=== PATIENT | male | born 1980 | race American Indian/Alaskan Native ===

== ENCOUNTER 2019-02-11 09:50 | Emergency (ER) | payer SELFPAY ==
[2019-02-11 10:16] VITALS: BP 119/71
[2019-02-11] MEDS ORDERED: predniSONE 20 MG TAB PO ONE (11:48)
[2019-02-11] MEDS ORDERED: IBUPROFEN 600 MG TAB PO ONE (11:48)
--- NOTE | 2019-02-11 11:53 | Emergency Department Report ---
ED Extremity Problem HPI - General Chief complaint: Extremity Injury, Lower Stated complaint: RT FOOT PAIN Time Seen by Provider: 02/11/19 11:47 Source: patient Mode of arrival: Ambulatory Limitations: No Limitations - History of Present Illness Initial comments: 38-year-old -[place] male presents to the emergency room complaining of pain to the bottom of his right foot at his arch. Patient states that he didn't has had no falls or injuries. Patient does admit to working in black steal boots with not much padding. Patient reported been taken Tylenol which reports no relief of pain. MD Complaint: extremity pain Location: right, other (foot bottom) History of Same: No Severity scale (0 -10): 8 Quality: burning, stabbing, aching Consistency: constant Improves with: nothing Worsens with: walking, palpation Associated Symptoms: denies other symptoms - Related Data Previous Rx's Medication Instructions Recorded Last Taken Type Ibuprofen [Motrin 600 MG tab] 600 mg PO Q8H PRN #30 tablet 02/11/19 Unknown Rx predniSONE [Deltasone] 20 mg PO QDAY 7 Days #7 tablet 02/11/19 Unknown Rx Allergies Allergy/AdvReac Type Severity Reaction Status Date / Time No Known Allergies Allergy Unverified 02/11/19 09:52 ED Review of Systems ROS: Stated complaint: RT FOOT PAIN Other details as noted in HPI Comment: All other systems reviewed and negative ED Past Medical Hx - Past Medical History Previous Medical History?: No - Surgical History Past Surgical History?: No - Social History Smoking Status: Never Smoker Substance Use Type: Alcohol, Marijuana - Medications Home Medications: Home Medications Medication Instructions Recorded Confirmed Last Taken Type Ibuprofen [Motrin 600 MG tab] 600 mg PO Q8H PRN #30 tablet 02/11/19 Unknown Rx predniSONE [Deltasone] 20 mg PO QDAY 7 Days #7 tablet 02/11/19 Unknown Rx ED Physical Exam - General Limitations: No Limitations General appearance: alert, in no apparent distress - Head Head exam: Present: atraumatic, normocephalic - Eye Eye exam: Present: normal appearance - ENT ENT exam: Present: mucous membranes moist - Expanded Lower Extremity Exam Right Foot/Toe exam: Present: tenderness (plantar aspect of the arch mild swelling) Neuro vascular tendon exam: Present: no vascular compromise - Neurological Exam Neurological exam: Present: alert, oriented X3 ED Course Vital Signs 02/11/19 10:12 Temperature 97.3 F L Pulse Rate 70 Respiratory 18 Rate Blood Pressure 119/71 O2 Sat by Pulse 99 Oximetry ED Medical Decision Making - Medical Decision Making 38-year-old -[place] male presents to the emergency room complaining of pain to the bottom of his right foot at his arch. Patient states that he didn't has had no falls or injuries. Patient does admit to working in black steal boots with not much padding. Patient reported been taken Tylenol which reports no relief of pain. Ibuprofen and steroids to be given now. Discussed the patient is sounds like a plantar fasciitis. We'll place patient on some short-term steroids with naproxen and patient is to follow-up with a biological technical officer. Critical care attestation.: If time is entered above; I have spent that time in minutes in the direct care of this critically ill patient, excluding procedure time. ED Disposition Clinical Impression: Plantar fasciitis of right foot Disposition: DC-01 TO HOME OR SELFCARE Is pt being admited?: No Does the pt Need Aspirin: No Condition: Stable Instructions: Plantar Fasciitis (ED) Prescriptions: predniSONE [Deltasone] 20 mg PO QDAY 7 Days #7 tablet Ibuprofen [Motrin 600 MG tab] 600 mg PO Q8H PRN #30 tablet PRN Reason: Pain , Severe (7-10) Referrals: YAJAIRA MCKNIGHT DPM [Referring] - 3-5 Days
== END 2019-02-11 12:24 | disposition home or self-care (01) ==
LOC: ED 09:50
DX: M72.2 Plantar fascial fibromatosis (principal); F12.10 Cannabis abuse, uncomplicated; Z79.1 Long term (current) use of non-steroidal anti-inflammatories (NSAID); Z79.899 Other long term (current) drug therapy
CPT/HCPCS: 99282; J7512

== ENCOUNTER 2020-05-13 08:49 | Emergency (ER) | payer SELFPAY ==
[2020-05-13 09:06] VITALS: BP 144/77
[2020-05-13] MEDS ORDERED: PANTOPRAZOLE 40 MG INJ IV ONE (09:18)
[2020-05-13] MEDS ORDERED: ONDANSETRON 4 MG/2 ML INJ IV ONE (09:18)
[2020-05-13] MEDS ORDERED: SODIUM CHLORIDE 0.9% 1000 ML 1,000 ML IV ONE (09:18)
--- NOTE | 2020-05-13 09:21 | Emergency Department Report ---
ED Abdominal Pain HPI - General Chief Complaint: Abdominal Pain Stated Complaint: ABD PAIN Time Seen by Provider: 05/13/20 09:07 Source: patient, family Mode of arrival: Ambulatory Limitations: No Limitations - History of Present Illness Initial Comments: Patient is a 39-year-old male presents emergency room with complaints of generalized abdominal pain that began 2 days ago. He states he has a history of a hernia that needs repair and he is planning on following up with a general surgeon. He is tolerating p.o. intake. He states that he had a sausage biscuit and orange juice for breakfast this morning. He states that the pain is worse after eating. He states he has some nausea. He denies any vomiting, diarrhea, fever, pain or swelling in the testicles, urinary symptoms, hematemesis, melena, hematochezia. No other past medical history. No allergies to medications. He states he had a normal bowel movement yesterday. - Related Data Previous Rx's Medication Instructions Recorded Last Taken Type Ibuprofen [Motrin 600 MG tab] 600 mg PO Q8H PRN #30 tablet 02/11/19 Unknown Rx predniSONE [Deltasone] 20 mg PO QDAY 7 Days #7 tablet 02/11/19 Unknown Rx Allergies Allergy/AdvReac Type Severity Reaction Status Date / Time No Known Allergies Allergy Verified 05/13/20 09:03 ED Review of Systems ROS: Stated complaint: ABD PAIN Other details as noted in HPI Comment: All other systems reviewed and negative ED Past Medical Hx - Past Medical History Previous Medical History?: No - Surgical History Past Surgical History?: No - Social History Smoking Status: Current Every Day Smoker Substance Use Type: None - Medications Home Medications: Home Medications Medication Instructions Recorded Confirmed Last Taken Type Ibuprofen [Motrin 600 MG tab] 600 mg PO Q8H PRN #30 tablet 02/11/19 Unknown Rx predniSONE [Deltasone] 20 mg PO QDAY 7 Days #7 tablet 02/11/19 Unknown Rx ED Physical Exam - General Limitations: No Limitations General appearance: alert, in no apparent distress - Head Head exam: Present: atraumatic, normocephalic - Eye Eye exam: Present: normal appearance - ENT ENT exam: Present: mucous membranes moist - Respiratory Respiratory exam: Present: normal lung sounds bilaterally. Absent: respiratory distress, wheezes, rales, rhonchi, stridor, chest wall tenderness, accessory muscle use, decreased breath sounds, prolonged expiratory - Cardiovascular Cardiovascular Exam: Present: regular rate, normal rhythm, normal heart sounds. Absent: systolic murmur, diastolic murmur, rubs, gallop - GI/Abdominal GI/Abdominal exam: Present: soft, distended (mildly), tenderness (generalized), normal bowel sounds, other (padded products inspector trimmer: michelle, EMT, there is a left sided inguinal hernia that is very easily reducible). Absent: guarding, rebound, rigid - Neurological Exam Neurological exam: Present: alert, oriented X3 - Psychiatric Psychiatric exam: Present: normal affect, normal mood - Skin Skin exam: Present: warm, dry, intact ED Course Vital Signs 05/13/20 09:05 Temperature 97.7 F Pulse Rate 70 Respiratory 20 Rate Blood Pressure 144/77 O2 Sat by Pulse 99 Oximetry ED Medical Decision Making - Lab Data Result diagrams: 05/13/20 09:28 05/13/20 09:28 Lab Results 05/13/20 05/13/20 05/13/20 Range/Units 09: 09:28 09:28 WBC 6.4 (4.5-11.0) K/mm3 RBC 4.90 (3.65-5.03) M/mm3 Hgb 13.7 (11.8-15.2) gm/dl Hct 41.8 (35.5-45.6) % MCV 85 (84-94) fl MCH 28 (28-32) pg MCHC 33 (32-34) % RDW 14.0 (13.2-15.2) % Plt Count 303 (140-440) K/mm3 Lymph % (Auto) 22.8 (13.4-35.0) % [place] % (Auto) 5.5 (0.0-7.3) % Eos % (Auto) 1.8 (0.0-4.3) % Baso % (Auto) 0.8 (0.0-1.8) % Lymph # (Auto) 1.5 (1.2-5.4) K/mm3 [place] # (Auto) 0.4 (0.0-0.8) K/mm3 Eos # (Auto) 0.1 (0.0-0.4) K/mm3 Baso # (Auto) 0.0 (0.0-0.1) K/mm3 Seg Neutrophils % 69.1 (40.0-70.0) % Seg Neutrophils # 4.4 (1.8-7.7) K/mm3 Sodium 141 (137-145) mmol/L Potassium 4.4 (3.6-5.0) mmol/L Chloride 104.9 (98-107) mmol/L Carbon Dioxide 32 H (22-30) mmol/L Anion Gap 9 mmol/L BUN 13 (9-20) mg/dL Creatinine 1.1 (0.8-1.3) mg/dL Estimated GFR > 60 ml/min BUN/Creatinine Ratio 12 % Glucose 90 (75-100) mg/dL Calcium 9.4 (8.4-10.2) mg/dL Total Bilirubin 0.70 (0.1-1.2) mg/dL AST 17 (5-40) units/L ALT 18 (7-56) units/L Alkaline Phosphatase 63 (35-129) units/L Total Protein 6.8 (6.3-8.2) g/dL Albumin 4.3 (3.9-5) g/dL Albumin/Globulin Ratio 1.7 % Lipase 18 (13-60) units/L Urine Color Yellow (Yellow) Urine Turbidity Clear (Clear) Urine pH 6.0 (5.0-7.0) Ur Specific [place] 1.023 (1.003-1.030) Urine Protein <15 mg/dl (Negative) mg/dL Urine Glucose (UA) Neg (Negative) mg/dL Urine Ketones Neg (Negative) mg/dL Urine Blood Neg (Negative) Urine Nitrite Neg (Negative) Urine Bilirubin Neg (Negative) Urine Urobilinogen < 2.0 (<2.0) mg/dL Ur Leukocyte Esterase Neg (Negative) Urine WBC (Auto) 1.0 (0.0-6.0) /HPF Urine RBC (Auto) < 1.0 (0.0-6.0) /HPF U Epithel Cells (Auto) < 1.0 (0-13.0) /HPF Urine Mucus Few /HPF - Medical Decision Making Patient is a 39-year-old male presents emergency room with complaints of generalized abdominal pain that began 2 days ago. He states he has a history of a hernia that needs repair and he is planning on following up with a general surgeon. He is tolerating p.o. intake. He states that he had a sausage biscuit and orange juice for breakfast this morning. He states that the pain is worse after eating. He states he has some nausea. He denies any vomiting, diarrhea, fever, pain or swelling in the testicles, urinary symptoms, hematemesis, melena, hematochezia. No other past medical history. No allergies to medications. He states he had a normal bowel movement yesterday. Vitals are stable. On exam patient has generalized abdominal tenderness palpation of all quadrants, no guarding, no rebound, no rigidity, mild distention,padded products inspector trimmer: DELICIA martinez, there is a left sided inguinal hernia that is very easily reducible. Abdominal pain does not appear to be related to patient's hernia as he is not having tenderness to the left inguinal region but his pain is generalized. Labs are normal. UA is within normal limits. CT abdomen pelvis with IV contrast ordered to rule out intra-abdominal pathology. Patient refused IV medications. Patient refused IV for CT scan. Patient states that he does not want a CT scan and is going to sign out AGAINST MEDICAL ADVICE. The patient is alert and oriented x3. The patient exhibits decision-making capacity. The patient is free from distracting injury. The risk of leaving without a complete medical examination, and AGAINST MEDICAL ADVICE, were explained to the patient, and they included , disability, paralysis, permanent loss of quality of life. Patient verbalized understanding to these and was able to articulate these risk in their own words. - Differential Diagnosis Obstruction, mass, hernia, colitis, diverticulitis, perforation, PUD/GERD Critical care attestation.: If time is entered above; I have spent that time in minutes in the direct care of this critically ill patient, excluding procedure time. ED Disposition Clinical Impression: Abdominal pain Qualifiers: Abdominal location: generalized Qualified Code(s): R10.84 - Generalized abdo tk pain Inguinal hernia Qualifiers: Obstruction and gangrene presence: without obstruction or gangrene Laterality: unilateral Recurrence: recurrent Qualified Code(s): K40.91 - Unilateral inguinal hernia, without obstruction or gangrene, recurrent Disposition: LEFT AGAINST MED ADVICE Is pt being admited?: No Does the pt Need Aspirin: No Condition: Undetermined Referrals: PRIMARY CARE, [Primary Care Provider] - MICKIE Forms: AMA Form Time of Disposition: 10:45 Print Language: SAMI
[2020-05-13 09:33] LABS: Bilirubin,Urine NEG (Negative); Blood,Urine NEG (Negative); Color,Urine Yellow (Yellow); Mucus,Urine FEW /HPF; Protein,Urine <15 mg/dL mg/dL (Negative); RBC,Urine < 1.0 /HPF (0.0-6.0); Urobilinogen,Urine < 2.0 mg/dL (<2.0)
[2020-05-13 09:57] LABS: Basophils % (Auto) 0.8 % (0.0-1.8); Eosinophils # (Auto) 0.1 K/mm3 (0.0-0.4); Eosinophils % (Auto) 1.8 % (0.0-4.3); Hematocrit 41.8 % (35.5-45.6); Hemoglobin 13.7 gm/dl (11.8-15.2); Lymphocytes # (Auto) 1.5 K/mm3 (1.2-5.4); Lymphocytes % (Auto) 22.8 % (13.4-35.0); Mean Corpuscular HGB Conc 33 % (32-34); Mean Corpuscular Volume 85 fl (84-94); Monocytes # (Auto) 0.4 K/mm3 (0.0-0.8); Monocytes % (Auto) 5.5 % (0.0-7.3); Platelet Count 303 K/mm3 (140-440)
[2020-05-13 10:21] LABS: Alanine Aminotransferase 18 units/L (7-56); Albumin 4.3 g/dL (3.9-5); BUN/Creatinine Ratio 12; Blood Urea Nitrogen 13 mg/dL (9-20); Calcium 9.4 mg/dL (8.4-10.2); Hemolysis Index 9
== END 2020-05-13 10:45 | disposition left against medical advice (07) ==
LOC: ED 08:49
DX: K40.90 Unilateral inguinal hernia, without obstruction or gangrene, not specified as recurrent (principal); F17.200 Nicotine dependence, unspecified, uncomplicated; Z79.899 Other long term (current) drug therapy
CPT/HCPCS: 36415; 80053; 81001; 83690; 85025; 99283; C9113; J2405; J7030